=== PATIENT | female | born 1965 | race Caucasian/White ===

== ENCOUNTER → 2017-02-09 | Outpatient (CLI) | payer MEDICARE, MEDICAID | END | disposition home or self-care (01) | LOC: PTH.S 09:15 → RAD.S 10:00 | DX: M54.5 Low back pain (principal); M51.36 Other intervertebral disc degeneration, lumbar region; M47.896 Other spondylosis, lumbar region; Z98.890 Other specified postprocedural states ==

== ENCOUNTER 2017-03-09 09:49 | Day surgery (SDC) | payer MEDICARE, MEDICAID ==
[~2017-03-09] VITALS: Ht 162.6 cm
--- NOTE | 2017-03-10 08:23 | OR ---
ADMIT: 03/09/2017 RM/LOC: [facility] MR#: [id number] [address] [id number] DEJESUS [address] [place] [id number] Operative/Delivery Room Report SEX: F AGE: 51 : 1965 SURGERY DATE: 03/09/2017 SURGEON: Harsha Medina MD BANQUET PREP COOK: None. PREOPERATIVE DIAGNOSIS: 1. Cervical post laminectomy syndrome. 2. Chronic pain syndrome. POSTOPERATIVE DIAGNOSIS: 1. Cervical post laminectomy syndrome. 2. Chronic pain syndrome. PROCEDURE PERFORMED: Caudal epidural steroid injection. INDICATION FOR PROCEDURE: The patient is a pleasant female with history of chronic low back pain and radicular symptoms, comes here for planned caudal epidural steroid injection. ANESTHESIA: Local without sedation. ESTIMATED BLOOD LOSS: Zero. COMPLICATIONS: None immediately evident. DESCRIPTION OF PROCEDURE: The patient was seen in the preoperative area. Vital signs were taken. Prior to the procedure, the risks, benefits, and the alternative therapies were discussed at length. Patient consent is obtained and updated. Patient was taken to fluoroscopy suite and placed on the fluoroscopy table in a prone position. Pressure points were padded to comfort, monitors applied, and a timeout performed. Fluoroscopy was then brought in. Patient was sterilely prepped and draped in the usual manner with the ChloraPrep solution, ADMIT: 03/09/2017 RM/LOC: [facility] MR#: [id number] [address] [place] [id number] [address] DEJESUS [address] [place] [id number] Operative/Delivery Room Report SEX: F AGE: 51 : 1965 and 1% lidocaine was used to anesthetize the appropriate needle entry site. Utilizing a lateral view of fluoroscopy, the sacral hiatus was entered using a 22-gauge curved-tip spinal needle. Once the epidural space had been entered, the patient was injected with 2 mL of Isovue-300, which showed outlining of posterior epidural wall with no evidence of vascular uptake and intrathecal migration. Next, a solution consisting of mL of preservative free normal saline and 80 mg of Depo-Medrol was slowly injected. The needle was withdrawn. The patient was escorted back to preoperative area and observed for a period of time. PLAN: Discharge instructions were given. Followup was scheduled. Patient was discharged home with a driver medic. Harsha Medina MD/ bianka JOB #: [id number] CC: Harsha Medina, Attending Physician Zena Downs, Family Physician
== END 2017-03-09 11:40 | disposition home or self-care (01) ==
LOC: SSS 09:49
PROC: 3E0S33Z Introduction of Anti-inflammatory into Epidural Space, Percutaneous Approach (ICD-10-PCS; principal; 2017-03-09)
PROC: B01BYZZ Fluoroscopy of Spinal Cord using Other Contrast (ICD-10-PCS; principal; 2017-03-09)
PROC: 3E0S3BZ Introduction of Anesthetic Agent into Epidural Space, Percutaneous Approach (ICD-10-PCS; principal; 2017-03-09)
DX: G89.4 Chronic pain syndrome (principal); M96.1 Postlaminectomy syndrome, not elsewhere classified; M50.20 Other cervical disc displacement, unspecified cervical region; K59.09 Other constipation; G35 Multiple sclerosis; F09 Unspecified mental disorder due to known physiological condition; G47.8 Other sleep disorders; I10 Essential (primary) hypertension; F30.8 Other manic episodes; G25.81 Restless legs syndrome; F17.210 Nicotine dependence, cigarettes, uncomplicated; M79.1 Myalgia; G43.719 Chronic migraine without aura, intractable, without status migrainosus; M46.1 Sacroiliitis, not elsewhere classified; Z88.8 Allergy status to other drugs, medicaments and biological substances; Z79.899 Other long term (current) drug therapy; Z79.891 Long term (current) use of opiate analgesic